=== PATIENT | female | born 2005 | race African-American/Black ===

== ENCOUNTER 2023-04-18 18:44 | Emergency (ER) | payer MEDICAID ==
[~2023-04-18] VITALS: Ht 170.2 cm; Wt 59.0 kg
[2023-04-18 19:07] VITALS: O2SAT 100
[2023-04-19] MEDS ORDERED: P50 MT (02:52)
[2023-04-19] MEDS ORDERED: ALBU6.7H15 INH (02:52)
[2023-04-19 03:05] VITALS: BP 114/76; PULSE 66; RESP 16; TEMP 99.3
== END 2023-04-19 03:10 | disposition home or self-care (01) ==
LOC: ER 18:44
DX: J39.9 Disease of upper respiratory tract, unspecified (principal); F17.210 Nicotine dependence, cigarettes, uncomplicated; Z20.822 Contact with and (suspected) exposure to COVID-19
CPT/HCPCS: 71046; 81025; 87426; 87804; 99284

== ENCOUNTER 2023-11-03 00:31 | Emergency (ER) | payer MEDICAID ==
[~2023-11-03] VITALS: Ht 167.6 cm; Wt 57.0 kg
[~2023-11-03 00:31] MED LIST: ALBU6.7H15 INH; P50 MT
[2023-11-03 01:08] VITALS: O2SAT 100
[2023-11-03 01:36] VITALS: BP 106/59; PULSE 85; RESP 16; TEMP 98.2; O2SAT 100
[2023-11-03 03:17] LABS: CLARITY URINE CLOUDY (CLEAR); COLOR URINE YELLOW (YELLOW); GLUCOSE URINE NEGATIVE (NEGATIVE); KETONES URINE 2+ (NEGATIVE); LEUKOCYTE ESTERASE URINE 1+ (NEGATIVE); NITRITE URINE NEGATIVE (NEGATIVE); OCCULT BLOOD URINE NEGATIVE (NEGATIVE); PROTEIN URINE TRACE (NEGATIVE); SPECIFIC GRAVITY URINE 1.026 (1.005-1.030)
[2023-11-03] MEDS ORDERED: CEPH500C2 MT (03:33)
[2023-11-03] MEDS ORDERED: IBUP-2028 MT (03:33)
[2023-11-03 04:03] LABS: BACTERIA URINE 1+; RBC URINE 0-2 /hpf (0-2); SQUAMOUS EPITHELIAL CELL URINE 2+ /lpf (RARE/1+)
== END 2023-11-03 04:09 | disposition home or self-care (01) ==
LOC: ER 00:31
DX: N12 Tubulo-interstitial nephritis, not specified as acute or chronic (principal)
CPT/HCPCS: 81003; 81025; 99283